=== PATIENT | female | born 1990 | race Caucasian/White ===

== ENCOUNTER → 2016-11-17 | Outpatient (CLI) | payer OTHER ==
[~2016-11-17] MED LIST: CLARITIN 1010 MG/TAB PO; MOTRIN 600600 MG/TAB PO; PERCOCET 325 MG1 TA2 PO; PRENATAL1 TA7 PO; ZANTAC 7575 MG PO
== END ==
LOC: COL.RAD 10:17
DX: Z53.9 Procedure and treatment not carried out, unspecified reason (principal)

== ENCOUNTER → 2016-11-18 | Outpatient (CLI) | payer OTHER | LOC: COL.RAD 09:32 | DX: K80.80 Other cholelithiasis without obstruction (principal); K82.8 Other specified diseases of gallbladder; R10.11 Right upper quadrant pain ==

== ENCOUNTER → 2017-08-09 | Outpatient (CLI) | payer OTHER | LOC: COL.RAD 08-05 11:15 | DX: E04.0 Nontoxic diffuse goiter (principal) ==

== ENCOUNTER 2019-06-24 08:21 | Inpatient (IN) | payer OTHER ==
[~2019-06-24] VITALS: Ht 152.4 cm; Wt 75.5 kg
[2019-06-24] VITALS (22 sets, daily range): BP systolic 100–140; BP diastolic 52–83; PULSE 67–117; TEMP 98–98.9
--- NOTE | 2019-06-24 08:40 | NUR ---
0830 G2L1 at 39.3 weeks gestation to LDR5 with c/o regular, painful contractions starting at 0430 this morning. She reports good movement and denies leaking of fluid or vaginal bleeding. Patient changed into gown and wedged left in bed. EFMs explained and applied. FHR 140 bpm and reative. CTX q3-5 minutes per toco, patient breathing through them. SVE 5/90/-1. Plan of care reviewed with patient and spouse.
--- NOTE | 2019-06-24 09:00 | NUR ---
Report from Enrike FAGAN to assume care of patient at this time.
[2019-06-24 09:07] LABS: BASO % 0.3 % (0.0-2.0); EOS % 0.3 % (0-4.0); GRAN # 10.5 (1.4-6.5); GRAN % 84.8 % (42.2-75.2); HEMATOCRIT 34.3 % (37.0-47.0); HEMOGLOBIN 11.3 g/dl (12.5-16.0); LYMPH # 1.1 (1.2-3.4); LYMPH % 8.9 % (20.0-51.0); MEAN CELL VOLUME 84 fl (80.0-100.0); MEAN CORPUSCULAR HEMOGLOBIN 28 pg (27.0-31.0); MEAN CORPUSCULAR HGB CONC 33 g/dl (33.0-37.0); MEAN PLATELET VOLUME 10.4 fl (7.4-10.4); MONO # 0.7 (0.1-0.6); MONO % 5.3 % (1.7-9.3); PLATELET COUNT 239 K/mm3 (130-400); RED BLOOD COUNT 4.07 M/mm3 (4.10-5.30); REDCELL DISTRIBUTION WIDTH-CV 13.1 % (11.5-14.5)
--- NOTE | 2019-06-24 09:20 | NUR ---
0905: Patient sitting up for epidural placement. Sriram LEVIN at bedside. 0911: Lidocaine. 0912: Single Shot given by Sriram LEVIN, no adverse reactions noted. 0914: Epidural Catheter placed. 0916: Test Dose given by Sriram LEVIN, no adverse reactions noted. 0920: Patient repositioned to left tilt.
--- NOTE | 2019-06-24 09:35 | NUR ---
to bedside. AROM at 0935, moderate amount of clear fluid noted. SVE 5/100/0 per provider.
--- NOTE | 2019-06-24 09:45 | NUR ---
Patient comfortable with epidural placement. Tran catheter placed.
--- NOTE | 2019-06-24 10:20 | NUR ---
Patient resting with epidural. at bedside. Patient reports occasional pressure with contractions but denies pain or needs at this time.
--- NOTE | 2019-06-24 10:25 | NUR ---
Variable deceleration noted. SVE 7-8/100/0. Patient instructed to notify RN with increased rectal pressure, pain, or urge to push. Verbalizes understanding. Call light within reach.
--- NOTE | 2019-06-24 11:30 | NUR ---
1100: SVE AL/+1. notified and requested on unit. 1110: at bedside. Practice push. SVE Complete/+2. 1120: Vacuum on while pushing. No pop offs noted. 1123: Vacuum assisted vaginal delivery of viable female infant over 1st degree laceration assisted by . Infant to abdomen, care assumed by Zena FAGAN at this time. 1125: Spontaneous vaginal delivery of placenta assisted by . Pitocin infusing at 333ml/hr. Fundus firm, lochia WNL. 1st degree laceration repaired using 3-0 Chromic on SH by . Red rose marie catheter used to drain bladder. 1130: Fundus firm, lochia WNL. Recovery period started.
--- NOTE | 2019-06-24 13:30 | NUR ---
Patient able to lift and hold both legs off of bed, but when patient moving to edge of bed, patient is having to manually move left leg and states it still feels very numb. Fundus firm, lochia WNL. Will continue to monitor. Denies pain or needs at this time. Call light within reach.
--- NOTE | 2019-06-24 14:00 | NUR ---
Patient still reports heavy left leg. Straight catheter used to drain bladder, 500ml clear yellow urine returned. Pericare performed. Gown changed. Underwear and peripad in place. Patient transferred to wheelchair with RN assist x2. Patient to Room 215 via wheelchair. Plan of care discussed. Questions answered. Call light within reach.
[2019-06-25 04:00] VITALS: BP 124/66; PULSE 76; TEMP 98.8
[2019-06-25 08:33] VITALS: BP 118/41; PULSE 90; TEMP 97.6
--- NOTE | 2019-06-25 09:06 | NUR ---
Initial visit; Mom thanked Specialty Trimmer for offering congratulations and God's blessings for the of her daughter. Specialty Trimmer thanked family for choosing [facility].
[2019-06-25] MEDS ORDERED: IBU800 M1 PO (11:14)
--- NOTE | 2019-06-25 16:40 | NUR ---
discharge instructions given, pt verbalizes understanding. No further questions noted. Bands matched and hugs tag removed.
== END 2019-06-25 17:05 | disposition home or self-care (01) | DRG 807 ==
LOC: LDRO 08:21 → OB 08:42 → LDR 08:42 → OB 14:50
PROVIDERS: Obstetrics & Gynecology; ADMIT Obstetrics & Gynecology
PROC: 10D07Z6 Extraction of Products of Conception, Vacuum, Via Natural or Artificial Opening (ICD-10-PCS; principal; 2019-06-24)
PROC: 0HQ9XZZ Repair Perineum Skin, External Approach (ICD-10-PCS; 2019-06-24)
PROC: 10907ZC Drainage of Amniotic Fluid, Therapeutic from Products of Conception, Via Natural or Artificial Opening (ICD-10-PCS; 2019-06-24)
DX: O76 Abnormality in fetal heart rate and rhythm complicating labor and delivery (principal); Z37.0 Single live birth; O70.0 First degree perineal laceration during delivery; Z3A.39 39 weeks gestation of pregnancy; O99.52 Diseases of the respiratory system complicating childbirth; O99.62 Diseases of the digestive system complicating childbirth; O99.284 Endocrine, nutritional and metabolic diseases complicating childbirth; J45.990 Exercise induced bronchospasm; K21.9 Gastro-esophageal reflux disease without esophagitis; E04.9 Nontoxic goiter, unspecified
CPT/HCPCS: J2405; J2590; J2795; J7120

== ENCOUNTER 2019-06-29 18:03 | Emergency (ER) | payer OTHER ==
[~2019-06-29] VITALS: Ht 152.4 cm; Wt 68.2 kg
[~2019-06-29 18:03] MED LIST changes: +IBU800 M1 PO
[2019-06-29 18:10] VITALS: TEMP 98.6
[2019-06-29 19:16] LABS: ALBUMIN 3.7 gm/dL (3.5-5.0); BILIRUBIN,TOTAL 0.2 mg/dL (0.0-1.0); CALCIUM 8.9 mg/dL (8.4-10.2); CREATININE, serum 0.5 (0.52-1.25); POTASSIUM 3.7 mmol/L (3.4-5.0); TOTAL PROTEIN 7.3 gm/dL (6.4-8.2)
[2019-06-29 19:36] LABS: BASO % 0.3 % (0.0-2.0); EOS # 0.1 (0.0-0.7); EOS % 1.5 % (0-4.0); GRAN # 4.8 (1.4-6.5); GRAN % 71.8 % (42.2-75.2); HEMATOCRIT 34.2 % (37.0-47.0); LYMPH # 1.3 (1.2-3.4); MEAN CELL VOLUME 85 fl (80.0-100.0); MEAN CORPUSCULAR HEMOGLOBIN 27 pg (27.0-31.0); MEAN CORPUSCULAR HGB CONC 32 g/dl (33.0-37.0); MEAN PLATELET VOLUME 9.8 fl (7.4-10.4); MONO # 0.5 (0.1-0.6); PLATELET COUNT 247 K/mm3 (130-400); RED BLOOD COUNT 4.02 M/mm3 (4.10-5.30); REDCELL DISTRIBUTION WIDTH-CV 13.4 % (11.5-14.5)
[2019-06-29 20:51] VITALS: BP 142/99; PULSE 104
== END 2019-06-29 20:52 | disposition home or self-care (01) ==
LOC: COL.ER 18:03
PROVIDERS: Emergency Medicine
DX: M54.9 Dorsalgia, unspecified (principal); R10.13 Epigastric pain; Z90.89 Acquired absence of other organs
CPT/HCPCS: J1885; Q9967